=== PATIENT | female | born 1960 | race Caucasian/White ===

== ENCOUNTER 2022-08-20 02:21 | Emergency (ER) | payer OTHER ==
[~2022-08-20] VITALS: Ht 165.1 cm; Wt 60.0 kg
[2022-08-20 02:30] VITALS: BP 166/78
[2022-08-20 02:49] LABS: CLARITY,URINE CLOUDY (Clear); COLOR,URINE YELLOW (Yellow); GLUCOSE, URINE NEGATIVE (Neg); KETONES,URINE NEGATIVE (Neg); LEUKOCYTE ESTERASE ,URINE NEGATIVE (Neg); NITRITES, URINE NEGATIVE (Neg); OCCULT BLOOD,URINE LARGE (Neg); PROTEIN,URINE 30 mg/dl (Neg)
[2022-08-20] MEDS ORDERED: ondansetron/PF 4mg/2ml inj IV ONE (02:55)
[2022-08-20] MEDS ORDERED: morphine 4 MG/ML inj SYRINge IV ONE (02:55)
[2022-08-20] MEDS ORDERED: normal saline 1000ML IV soln IVB ONE (02:55)
[2022-08-20 02:57] LABS: UA COLLECTION TYPE NON-SPECIFIED
[2022-08-20 02:59] LABS: BASOPHILS # (AUTO) 0.1 X10'3 (0-0.2); BASOPHILS % (AUTO) 0.7 % (0-1); EOSINOPHILS # (AUTO) 0.6 X10'3 (0-0.9); EOSINOPHILS % (AUTO) 7.3 % (0-6); LYMPHOCYTES # (AUTO) 3.2 X10'3 (1.1-4.8); LYMPHOCYTES % (AUTO) 39.7 % (21-51); MEAN CORPUSCULAR HEMOGLOBIN 31.4 PG (27.0-31.0); MEAN CORPUSCULAR HGB CONC 33.3 g/dL (33.0-36.5); MEAN CORPUSCULAR VOLUME 94.5 FL (78-98); MEAN PLATELET VOLUME 8.9 FL (7.4-10.4); MONOCYTES # (AUTO) 0.7 X10'3 (0-0.9); MONOCYTES % (AUTO) 8.2 % (2-12); NEUTROPHILS # (AUTO) 3.6 X10'3 (1.8-7.7); NEUTROPHILS % (AUTO) 44.1 % (42-75); PLATELET COUNT 336 X10'3 (140-440); RED BLOOD COUNT 4.12 X10'6 (4.20-5.60); RED CELL DISTRIBUTION WIDTH 12.8 % (11.5-14.5); WHITE BLOOD COUNT 8.2 X10'3 (4.5-11.0)
[2022-08-20 03:02] LABS: BACTERIA,URINE 1+ /HPF (Neg); RBC,URINE TNTC /HPF (0-2); SQUAMOUS EPITHELIAL CELL,UR FEW /LPF (FEW)
[2022-08-20 03:03] LABS: MUCUS STRANDS MODERATE /LPF (Neg)
[2022-08-20 03:09] LABS: CAL OXALATE CRYSTALS FEW /HPF (NEGATIVE)
[2022-08-20 03:12] LABS: ALANINE AMINOTRANSFERASE 31 U/L (12-78); ALBUMIN 3.8 G/DL (3.4-5.0); ALBUMIN/GLOBULIN RATIO 1.1 (1.1-1.5); ALKALINE PHOSPHATASE 63 IU/L (46-116); ANION GAP 10 (8-16); ASPARTATE AMINO TRANSFERASE 23 U/L (10-37); BILIRUBIN,TOTAL 0.2 MG/DL (0.1-1.0); BLOOD UREA NITROGEN 15 MG/DL (7-18); BUN/CREATININE RATIO 16.3 (10.0-20.0); CALCIUM 8.8 MG/DL (8.5-10.1); CHLORIDE 106 MMOL/L (99-107); CREATININE 0.92 MG/DL (0.40-0.90); GLUCOSE 96 MG/DL (70-104); POTASSIUM 3.7 MMOL/L (3.5-5.1); SODIUM 145 MMOL/L (135-145); TOTAL CARBON DIOXIDE 28.9 MMOL/L (24-32); TOTAL PROTEIN 7.3 G/DL (6.4-8.2); eGFR 62 ML/MIN
[2022-08-20] MEDS ORDERED: HYDR-3965 PO (03:21)
[2022-08-20] MEDS ORDERED: FLO0.4C PO (03:21)
[2022-08-20] MEDS ORDERED: HYDR-3973 PO (10:22)
== END 2022-08-20 03:44 | disposition home or self-care (01) ==
LOC: ER 02:22
DX: N20.0 Calculus of kidney (principal); Z88.0 Allergy status to penicillin
CPT/HCPCS: 36415; 74176; 80053; 81001; 85025; 87088; 96374; 96375; 99285; J2270; J2405; J7030

== ENCOUNTER 2022-09-10 07:56 | Emergency (ER) | payer OTHER ==
[~2022-09-10] VITALS: Ht 165.1 cm; Wt 60.5 kg
[~2022-09-10 07:56] MED LIST: FLO0.4C PO; HYDR-3965 PO
[2022-09-10 08:05] VITALS: BP 131/70; PULSE 71; RESP 16; TEMP 99.6; O2SAT 100
[2022-09-10] MEDS ORDERED: normal saline 1000ML IV soln IVB ONE (08:55)
[2022-09-10] MEDS ORDERED: ketorolac tromethamine 15mg/ml inj. IV ONE (08:55)
[2022-09-10] MEDS ORDERED: ondansetron/PF 4mg/2ml inj IV ONE (08:55)
[2022-09-10 09:07] LABS: GLUCOSE, URINE NEGATIVE (Neg); KETONES,URINE 15 mg/dl (Neg); LEUKOCYTE ESTERASE ,URINE TRACE (Neg); NITRITES, URINE POSITIVE (Neg); OCCULT BLOOD,URINE LARGE (Neg); PH,URINE 6.5 (4.8-8.0); PROTEIN,URINE 100 mg/dl (Neg)
[2022-09-10 09:12] LABS: CLARITY,URINE CLOUDY (Clear); COLOR,URINE RED (Yellow); UA COLLECTION TYPE CLN CATCH MIDSTREAM
[2022-09-10 09:18] LABS: RBC,URINE TNTC /HPF (0-2)
[2022-09-10 09:19] LABS: BACTERIA,URINE 1+ /HPF (Neg); SQUAMOUS EPITHELIAL CELL,UR MODERATE /LPF (FEW); WBC,URINE 0-4 /HPF (0-4)
[2022-09-10 09:25] LABS: BASOPHILS % (AUTO) 0.6 % (0-1); EOSINOPHILS # (AUTO) 0.2 X10'3 (0-0.9); EOSINOPHILS % (AUTO) 2.8 % (0-6); HEMOGLOBIN 13.1 g/dl (12.0-16.0); LYMPHOCYTES # (AUTO) 1.8 X10'3 (1.1-4.8); LYMPHOCYTES % (AUTO) 29.2 % (21-51); MEAN CORPUSCULAR HEMOGLOBIN 31.2 PG (27.0-31.0); MEAN CORPUSCULAR HGB CONC 33.6 g/dL (33.0-36.5); MEAN CORPUSCULAR VOLUME 92.6 FL (78-98); MONOCYTES # (AUTO) 0.3 X10'3 (0-0.9); MONOCYTES % (AUTO) 4.7 % (2-12); NEUTROPHILS # (AUTO) 3.9 X10'3 (1.8-7.7); NEUTROPHILS % (AUTO) 62.7 % (42-75); PLATELET COUNT 296 X10'3 (140-440); RED BLOOD COUNT 4.21 X10'6 (4.20-5.60); RED CELL DISTRIBUTION WIDTH 12.9 % (11.5-14.5); WHITE BLOOD COUNT 6.2 X10'3 (4.5-11.0)
[2022-09-10 09:40] LABS: ALANINE AMINOTRANSFERASE 31 U/L (12-78); ALBUMIN 3.9 G/DL (3.4-5.0); ALKALINE PHOSPHATASE 63 IU/L (46-116); ANION GAP 10 (8-16); ASPARTATE AMINO TRANSFERASE 19 U/L (10-37); BILIRUBIN,TOTAL 0.5 MG/DL (0.1-1.0); BLOOD UREA NITROGEN 14 MG/DL (7-18); BUN/CREATININE RATIO 17.3 (10.0-20.0); CHLORIDE 105 MMOL/L (99-107); CREATININE 0.81 MG/DL (0.40-0.90); GLUCOSE 120 MG/DL (70-104); POTASSIUM 3.9 MMOL/L (3.5-5.1); SODIUM 142 MMOL/L (135-145); TOTAL CARBON DIOXIDE 27.1 MMOL/L (24-32); TOTAL PROTEIN 7.7 G/DL (6.4-8.2); eGFR 71 ML/MIN
[2022-09-10 09:49] LABS: CALCIUM 9.1 MG/DL (8.5-10.1)
[2022-09-10] MEDS ORDERED: PHEN-716 PO (10:00)
[2022-09-10] MEDS ORDERED: CEPH-585 PO (10:00)
== END 2022-09-10 10:39 | disposition home or self-care (01) ==
LOC: ER 07:57
DX: N20.0 Calculus of kidney (principal); N39.0 Urinary tract infection, site not specified; R31.9 Hematuria, unspecified; R10.2 Pelvic and perineal pain; Z79.2 Long term (current) use of antibiotics; Z79.899 Other long term (current) drug therapy
CPT/HCPCS: 36415; 74176; 80053; 81001; 85025; 87088; 96374; 96375; 99285; J1885; J2405; J7030

== ENCOUNTER 2022-09-10 22:55 | Emergency (ER) | payer OTHER ==
[~2022-09-10] VITALS: Ht 165.1 cm; Wt 60.5 kg
[~2022-09-10 22:55] MED LIST changes: +CEPH-585 PO; +PHEN-716 PO
[2022-09-10 23:01] VITALS: BP 161/96; PULSE 76; RESP 16; TEMP 98.1; O2SAT 99
== END 2022-09-11 01:46 | disposition left against medical advice (07) ==
LOC: ER 22:56
DX: N23 Unspecified renal colic (principal); Z53.21 Procedure and treatment not carried out due to patient leaving prior to being seen by health care provider
CPT/HCPCS: 99281

== ENCOUNTER 2024-05-08 15:55 | Emergency (ER) | payer OTHER, MEDICARE ==
[~2024-05-08] VITALS: Ht 165.1 cm; Wt 61.0 kg
[~2024-05-08 15:55] MED LIST changes: -CEPH-585 PO; -FLO0.4C PO; -HYDR-3965 PO
[2024-05-08 15:56] VITALS: BP 187/78; PULSE 74; TEMP 97.6; O2SAT 100
[2024-05-08] MEDS: HYDROcodone/acetaminophen 10/325mg tab PO STA (16:18)
[2024-05-08] MEDS: ondansetron 4mg rapidly disintigrating tab PO ONE (18:44)
[2024-05-08] MEDS: ketorolac trometh 30MG/ML vial 30 MG/ML VIAL IM ONE (18:45)
[2024-05-08 18:47] VITALS: RESP 16
[2024-05-08] MEDS: oxyCODONE IR 5mg (immed. release) tablet PO ONE (18:47)
[2024-05-08] MEDS ORDERED: OXYC-658 PO (18:54)
[2024-05-08] MEDS ORDERED: ONDA-243 PO (18:54)
== END 2024-05-08 19:06 | disposition home or self-care (01) ==
LOC: ER 15:55
DX: S93.401A Sprain of unspecified ligament of right ankle, initial encounter (principal); S80.01XA Contusion of right knee, initial encounter; S20.219A Contusion of unspecified front wall of thorax, initial encounter; Z88.0 Allergy status to penicillin; W11.XXXA Fall on and from ladder, initial encounter; Y93.89 Activity, other specified; Y92.89 Other specified places as the place of occurrence of the external cause; Y99.8 Other external cause status
CPT/HCPCS: 29505; 71100; 73564; 73610; 96372; 99284; J1885; A6449